=== PATIENT | female | born 1985 | race Caucasian/White ===

== ENCOUNTER 2017-01-23 11:52 | Emergency (ER) | payer BC ==
[2017-01-23 12:13] VITALS: BP 120/71
--- NOTE | 2017-01-23 12:16 | UC ---
Throat Pain/Nasal Neel HPI - HPI Summary HPI Summary: 31 year old female with sinus pressure. Pt recently found out she has a sinus cyst - taking bactrim. C/o continued headache & sinus pressure that is worsening. Unable to get in to ENT till next week. Bactrim not helping. Has taken steroids recently and not helpful. No visual changes, no head injury . Her sinus pressure is what is causing her to come in since no relief with bactrim. Also has had some nausea and one episode of vomiting after taking the Bactrim [ End ] - History of Current Complaint Chief Complaint: UCGeneralIllness Stated Complaint: HEADACHE,ACHY Time Seen by Provider: 01/23/17 12:15 Hx Obtained From: Patient Hx Last Menstrual Period: 01/05/17 Onset/Duration: Gradual Onset Associated Signs & Symptoms: Positive: Sinus Discomfort, Nasal Discharge - Allergies/Home Medications Allergies/Adverse Reactions: Allergies Allergy/AdvReac Type Severity Reaction Status Date / Time No Known Allergies Allergy Verified 01/23/17 12:07 Home Medications: Home Medications Hydrocodone-Acetaminophen [Vicodin 5-300 mg] 1 tab PO ONCE PRN 01/23/17 [ History Confirmed 01/23/17] PMH/Surg Hx/FS Hx/Imm Hx Previously Healthy: Yes - Surgical History Surgical History: Yes Surgery Procedure, Year, and Place: D&C,ear tubes, sinus cyst removal - Family History Known Family History: Positive: None - Social History Occupation: Employed Full-time Lives: With Family Alcohol Use: Rare Substance Use Type: None Smoking Status (MU): Never Smoked Tobacco Type: Cigarettes Household Exposure Type: Cigarettes Review of Systems ENT: Nasal Discharge, Sinus Congestion, Sinus Pain/Tenderness Neurological: Headache All Other Systems Reviewed And Are Negative: Yes Physical Exam Triage Information Reviewed: Yes Appearance: Well-Appearing, No Pain Distress, Well-Nourished Vital Signs: Initial Vital Signs Temp 99.3 F 01/23/17 12:09 Pulse 94 01/23/17 12:09 Resp 16 01/23/17 12:09 BP 120/71 01/23/17 12:09 Pulse Ox 99 01/23/17 12:09 Eye Exam: Normal ENT Exam: Normal ENT: Positive: Pharynx normal, Nasal congestion, Nasal drainage, TM dull - left , Other: - bilateral frontal sinus tenderness to palpatio n. Negative: Hearing grossly normal, Pharyngeal erythema, TM bulging, TM red, Tonsillar swelling, Tonsillar exudate Dental Exam: Normal Neck exam: Normal Neck: Positive: 1 Respiratory Exam: Normal Cardiovascular Exam: Normal Musculoskeletal Exam: Normal Neurological Exam: Normal Neurological: Positive: Alert Psychological Exam: Normal Skin Exam: Normal Throat Pain/Nasal Course/Dx - Course Course Of Treatment: Failed bactrim -- change to cefdinir for the sinus pressure /infection and keep f/u with Dr Becker at this time. GO to ED if Sx worsen. No neuro red flags. Had recent CT scan and Dx with sinus cyst and may need surgery. SHe is aware and agreeable. Declined corticostreoids. Start nasal sprays netti pot - Differential Dx/Diagnosis Differential Diagnosis/HQI/PQRI: Otitis Media, Pharyngitis, Tonsillitis Provider Diagnoses: Sinusitis / sinus cyst Discharge - Discharge Plan Condition: Good Disposition: HOME Prescriptions: Cefdinir [Cefdinir 300 MG CAP] 300 mg PO BID #20 cap Patient Education Materials: Sinusitis (ED) Referrals: Umair Alvarez [Primary Care Provider] - 3 Days Lloyd Becker MD [Medical Doctor] - (Please keep your ENT appt) Additional Instructions: Please go to the ED if your symptoms worsen. Consider also using the Netti Pot for relief of your symptoms.
== END 2017-01-23 12:34 | disposition home or self-care (01) ==
LOC: UCCORT 11:52
DX: J32.9 Chronic sinusitis, unspecified (principal); J34.1 Cyst and mucocele of nose and nasal sinus
CPT/HCPCS: 99212; G0463

== ENCOUNTER 2018-02-12 16:44 | Emergency (ER) | payer BC ==
[2018-02-12 18:15] VITALS: BP 126/56
--- NOTE | 2018-02-12 18:56 | UC ---
General HPI - HPI Summary HPI Summary: Of a one and half week history of cough with occasional shortness of breath. She admits to wheezing and a fever of 100. She has no associated history of sore throat. She admits to history of childhood asthma. She states she saw her primary care provider who initially treated her for allergies with Flonase and an allergy pill plus Tessalon Perles all with no relief. Tylenol with codeine was recently added as well. - History of Current Complaint Chief Complaint: UCGeneralIllness Stated Complaint: COUGH Time Seen by Provider: 02/12/18 18:31 Hx Obtained From: Patient Hx Last Menstrual Period: 01/22/18 Onset/Duration: Gradual Onset Timing: Constant Pain Intensity: 7 Alleviating: nothing Associated Signs & Symptoms: Positive: Cough, Fever, SOB, Wheezing - Allergy/Home Medications Allergies/Adverse Reactions: Allergies Allergy/AdvReac Type Severity Reaction Status Date / Time No Known Allergies Allergy Verified 02/12/18 18:15 Home Medications: Home Medications Fluticasone NASAL SPRAY 50MCG* [Flonase NASAL SPRAY 50MCG*] 2 spray BOTH NARES BID 02/12/18 [History Confirmed 02/12/18] LevoCETirizine TAB (NF) [Xyzal TAB (NF)] 5 mg PO DAILY 02/12/18 [History Confirmed 02/12/18] PMH/Surg Hx/FS Hx/Imm Hx Previously Healthy: Yes - Surgical History Surgical History: Yes Surgery Procedure, Year, and Place: D&C,ear tubes, sinus cyst removal - Family History Known Family History: Positive: None - Social History Occupation: Employed Full-time Alcohol Use: Rare Substance Use Type: None Smoking Status (MU): Never Smoked Tobacco Type: Cigarettes Household Exposure Type: Cigarettes - Immunization History Vaccination Up to Date: Yes Review of Systems Constitutional: Fever Skin: Negative Eyes: Negative ENT: Negative Respiratory: Shortness Of Breath, Cough Cardiovascular: Negative Gastrointestinal: Negative Genitourinary: Negative Motor: Negative Neurovascular: Negative Musculoskeletal: Negative Neurological: Negative Psychological: Negative Is Patient Immunocompromised?: No All Other Systems Reviewed And Are Negative: Yes Physical Exam Triage Information Reviewed: Yes Appearance: Well-Appearing Vital Signs: Initial Vital Signs Temp 97.3 F 02/12/18 18:10 Pulse 96 02/12/18 18:10 Resp 20 02/12/18 18:10 BP 126/56 10/05/18 18:10 Pulse Ox 99 02/12/18 18:10 Vital Signs Reviewed: Yes Eyes: Positive: Conjunctiva Clear ENT: Positive: Pharynx normal, TMs normal. Negative: Nasal congestion, Nasal drainage Neck: Positive: Supple, Nontender, No Lymphadenopathy Respiratory: Positive: No respiratory distress, Decreased breath sounds, Wheezing - scattered Cardiovascular: Positive: RRR - Cough is congested a bronchospastic, No Murmur Abdomen Description: Positive: Nontender, No Organomegaly, Soft Bowel Sounds: Positive: Present Musculoskeletal: Positive: ROM Intact Neurological: Positive: Alert Psychological: Positive: Age Appropriate Behavior Skin Exam: Normal Diagnostics - Radiology No standard instances Radiology Interpretation Completed By: ED Physician - wet read=nad Course/Dx - Course Course Of Treatment: no ptx, cm or infiltrate on cxr. since fever, will cober for presumptive bacterial infection and bronchospasm. - Differential Dx - Multi-Symptom Provider Diagnoses: Acute Cough. Bronchospasm Discharge - Sign-Out/Discharge Documenting (check all that apply): Patient Departure All imaging exams completed and their final reports reviewed: No - Discharge Plan Condition: Stable Disposition: HOME Prescriptions: Albuterol HFA INHALER* [Ventolin HFA Inhaler*] 2 puff INH Q6H #1 mdi Azithromycin TAB* [Zithromax TAB (Z-TOM) 250 mg #6 tabs] 2 tab PO .TODAY, THEN 1 DAILY #1 tom predniSONE TAB* [Deltasone 20 MG TAB*] 40 mg PO DAILY 5 Days #10 tab Patient Education Materials: Acute Cough (ED), Bronchospasm (ED) Referrals: Umair Alvarez [Primary Care Provider] - 7 Days - Billing Disposition and Condition Condition: STABLE Disposition: Home
--- NOTE | 2018-02-13 07:42 | RAD ---
INDICATION: Cough, wheezing, shortness of breath. History of asthma. COMPARISON: No relevant prior exams available on the [facility] PACS for comparison. TECHNIQUE: Dual energy PA and routine lateral views of the chest were obtained. REPORT: No focal pulmonary lesion, compelling alveolar consolidation, pleural effusion, pneumothorax. The heart, pulmonary vasculature, and mediastinal contours are unremarkable. IMPRESSION: #. No evidence for pneumonia. R0
--- NOTE | 2018-02-13 10:53 | UC ---
- Progress Note Progress Note: Patient Name: RADAMES STEWART Medical Record#: [id number] Ordering Physician: Celeste YOON Acct.#: [id number] : 1985 Age: 32 Sex: F Location: [facility] Exam Date: 02/12/181835 ADM Status: [facility] ER Order Information: CHEST PA & LAT 2 VWS Accession Number: [id number] CPT: 90431 INDICATION: Cough, wheezing, shortness of breath. History of asthma. COMPARISON: No relevant prior exams available on the [facility] PACS for comparison. TECHNIQUE: Dual energy PA and routine lateral views of the chest were obtained. REPORT: No focal pulmonary lesion, compelling alveolar consolidation, pleural effusion, pneumothorax. The heart, pulmonary vasculature, and mediastinal contours are unremarkable. IMPRESSION: #. No evidence for pneumonia. R0 <Electronically signed by Andre Kuhn MD in OV> 02/13/18737 Dictated By: Andre Kuhn MD Dictated Date/Time: 02/13/18737 Transcribed Date/Time: 02/13/18736 Copy to: CC:Umair REDDY; Skye Hawthorne MD; Celeste YOON Imaging - [facility] [address] [place] [address] ph [phone] ph ([phone]) ph ([phone]) This report is only to be considered final once signed by the Provider(s) as displayed in the "<Electronically Signed by >" field (s). Absence of a signature indicates the report is in a draft status and still needs to be finalized. In the event this document was created by someone other than the signing Provider, the individual initiating the document will be listed in the "Entered by:" or "Dictated by:" wolfe. 1 of 1 Discharge - Sign-Out/Discharge Documenting (check all that apply): Post-Discharge Follow Up All imaging exams completed and their final reports reviewed: Yes - Discharge Plan Condition: Stable Disposition: HOME Prescriptions: Albuterol HFA INHALER* [Ventolin HFA Inhaler*] 2 puff INH Q6H #1 mdi Azithromycin TAB* [Zithromax TAB (Z-TOM) 250 mg #6 tabs] 2 tab PO .TODAY, THEN 1 DAILY #1 tom predniSONE TAB* [Deltasone 20 MG TAB*] 40 mg PO DAILY 5 Days #10 tab Patient Education Materials: Bronchospasm (ED), Acute Cough (ED) Referrals: Roberto REDDY,Umair Gross [Primary Care Provider] - 7 Days - Billing Disposition and Condition Condition: STABLE Disposition: Home
== END 2018-02-12 19:34 | disposition home or self-care (01) ==
LOC: UCCORT 16:44
DX: J98.01 Acute bronchospasm (principal)
CPT/HCPCS: 71046; 99212; G0463